=== PATIENT | male | born 1995 | race American Indian/Alaskan Native ===

== ENCOUNTER 2020-02-22 21:28 | Emergency (ER) | payer SELFPAY ==
[2020-02-22 21:38] VITALS: BP 126/74
== END 2020-02-22 23:03 | disposition left against medical advice (07) ==
LOC: ED 21:28
DX: S69.81XA Other specified injuries of right wrist, hand and finger(s), initial encounter (principal); Z53.21 Procedure and treatment not carried out due to patient leaving prior to being seen by health care provider; W26.0XXA Contact with knife, initial encounter; Y93.89 Activity, other specified; Y92.008 Other place in unspecified non-institutional (private) residence as the place of occurrence of the external cause; Y99.8 Other external cause status